=== PATIENT | male | born 1980 | race Two or more races ===

== ENCOUNTER 2018-03-08 13:49 | Outpatient (CLI) | payer OTHER | END 2018-03-08 13:57 | disposition home or self-care (01) | LOC: RAD 501 13:49 | DX: S53.105A Unspecified dislocation of left ulnohumeral joint, initial encounter (principal) ==

== ENCOUNTER 2022-11-24 11:03 | Outpatient (CLI) | payer OTHER | END 2022-11-24 11:11 | disposition home or self-care (01) | LOC: SONOGRAMA 11:03 | PROVIDERS: ATTEND Specialist | DX: N45.2 Orchitis (principal) ==

== ENCOUNTER 2024-08-26 15:04 | Emergency (ER) | payer OTHER ==
[~2024-08-26] VITALS: Ht 185.4 cm; Wt 91.6 kg
[2024-08-26] MEDS ORDERED: ORPHENADRINE CITRATE 30 MG/ML AMPUL IM STA (18:25)
[2024-08-26] MEDS ORDERED: KETOROLAC TROMETHAMINE 30 MG VIAL IM STA (18:25)
== END 2024-08-26 19:18 | disposition home or self-care (01) ==
LOC: ER 15:07
DX: Z88.8 Allergy status to other drugs, medicaments and biological substances (principal)
CPT/HCPCS: 96372; 99282; J1885; J2360

== ENCOUNTER 2025-01-15 09:31 | Emergency (ER) | payer OTHER ==
[~2025-01-15] VITALS: Ht 185.4 cm; Wt 90.7 kg
[2025-01-15] MEDS ORDERED: DIPHENHYDRAMINE HCL 50 MG/ML VIAL 1ML IV ONE (10:00)
[2025-01-15] MEDS ORDERED: METHYLPREDNISOLONE SOD SUCC 125 MG VIAL IV ONE (10:00)
== END 2025-01-15 11:58 | disposition home or self-care (01) ==
LOC: ER 09:31
DX: T50.995A Adverse effect of other drugs, medicaments and biological substances, initial encounter (principal); Y92.89 Other specified places as the place of occurrence of the external cause; Z88.8 Allergy status to other drugs, medicaments and biological substances
CPT/HCPCS: 96365; 99282; J1200